=== PATIENT | male | born 1970 | race Caucasian/White ===

== ENCOUNTER 2022-08-25 16:57 | Emergency (ER) | payer MEDICAID, SELFPAY ==
[2022-08-25 16:57] VITALS: BP 163/92; PULSE 66; RESP 18; TEMP 36.7; O2SAT 99; BMI 32.1
[2022-08-25 17:10] VITALS: BMI 32.1
--- NOTE | 2022-08-25 17:10 | CT_ITS ---
PROCEDURE INFORMATION: Exam: CT Head Without Contrast Exam date and time: 08/25/2022 5:14 PM Age: 52 years old Clinical indication: Injury or trauma; Other: Tree limb hit in head; Blunt trauma (contusions or hematomas); Without loss of consciousness; Injury date: 08/25/22; Additional info: Tree limb hit in head-- laceration on right side of head TECHNIQUE: Imaging protocol: Computed tomography of the head without contrast. Radiation optimization: All CT scans at this facility use at least one of these dose optimization techniques: automated exposure control; mA and/or kV adjustment per patient size (includes targeted exams where dose is matched to clinical indication); or iterative reconstruction. COMPARISON: No relevant prior studies available. FINDINGS: Brain: The burr-white differentiation is preserved demonstrating no acute territorial type infarct. No acute intracranial hemorrhage is visualized. No intracranial mass effect. Artifact limits evaluation of the kindra. Intracranial atherosclerosis visualized. Cerebral ventricles: Mild ventriculomegaly, with asymmetry of the lateral ventricles. Mild sulcal atrophy. Pituitary gland and sella: Partially empty sella. Paranasal sinuses: Minimal mucosal thickening of the right maxillary sinus. Mastoid air cells: No mastoid effusion. Bones/joints: The calvarium demonstrates no evidence for a depressed fracture. Soft tissues: Unremarkable. IMPRESSION: 1. No acute intracranial abnormality. 2. Mild ventriculomegaly, with asymmetry of the lateral ventricles. Mild sulcal atrophy. 3. Additional findings described above.
--- NOTE | 2022-08-25 17:10 | CT_ITS ---
PROCEDURE INFORMATION: Exam: CT Cervical Spine Without Contrast Exam date and time: 08/25/2022 5:17 PM Age: 52 years old Clinical indication: Injury or trauma; Other: Tree limb hit in head; Blunt trauma; Injury date: 08/25/22; Additional info: Tree limb hit in head- laceration on the right side of head TECHNIQUE: Imaging protocol: Computed tomography of the cervical spine without contrast. Radiation optimization: All CT scans at this facility use at least one of these dose optimization techniques: automated exposure control; mA and/or kV adjustment per patient size (includes targeted exams where dose is matched to clinical indication); or iterative reconstruction. COMPARISON: CT HEAD/BRAIN WO CON 08/25/2022 5:14 PM FINDINGS: Bones/joints: No acute cervical spine fracture. The facet alignment is preserved bilaterally. Slight rotation of C1 on C2. No subluxation of the remaining cervical levels. The cervical lordosis is straightened. Hypertrophic arthropathy is identified at the junction of the anterior C1 arch and dens process. Facet arthropathy is identified at multiple cervical levels. Discs/Spinal canal/Neural foramina: Degenerative changes are visualized at multiple cervical levels. An anterior bridging osteophyte is identified at C5-C6. Mild spinal canal stenosis at C5-C6. Artifact limits evaluation of the spinal canal. Additional degenerative changes are identified at T2-3. Pharynx: Poor aeration of the bilateral pyriform sinuses. Lungs: No pneumothorax, as visualized. Lymph nodes: An enlarged right paratracheal lymph node is identified measuring 1.5 x 1.0 cm, nonspecific as to etiology. Scattered nonspecific cervical lymph nodes. Soft tissues: No significant prevertebral soft tissue swelling. IMPRESSION: 1. No acute cervical spine fracture. 2. Slight rotation of C1 on C2. 3. The cervical lordosis is straightened. 4. Degenerative changes are visualized at multiple cervical levels. 5. Additional findings described above.
--- NOTE | 2022-08-25 17:13 | PC.NURSE ---
pt to ct
[2022-08-25 18:01] VITALS: BP 150/90; PULSE 71; RESP 20; O2SAT 95
--- NOTE | 2022-08-25 18:23 | HMH.EDGENADL ---
Discharge Plan Disposition Patient Disposition: Home, Self-Care Condition: Good Prescriptions Prescriptions: New sulfamethoxazole-trimethoprim [Bactrim DS] 800-160 mg tablet 1 tab PO DAILY 5 Days Qty: 5 0RF No Action cyclobenzaprine 10 MG tablet 10 mg PO TID PRN (Reason: Muscle Spasm) Qty: 15 0RF etodolac 200 MG capsule 200 mg PO Q6HP PRN (Reason: Moderate Pain) Qty: 20 0RF cephalexin [Keflex] 500 MG capsule 500 mg PO QID Qty: 28 0RF Referrals Follow up/Referrals: Provider,Referral, MD [Primary Care Provider] - See instructions Clinical Impressions Clinical Impression: Laceration of scalp, Blunt head trauma Instructions Patient Instructions: DI for Laceration Repair -- Lex, Closed Head Injury Discharge ED Provider: Herber Garcia General Adult HPI General Chief complaint: Head Injury Stated complaint: ao 08/25 head laceration Time Seen by Provider: 08/25/22 17:05 Mode of Arrival: Ambulatory Source of Information: Patient Limitations: No Limitations Description of Symptoms (Recalled from ER Triage Doc. by RN): Pt reports was struck in the head by a tree limb, pt estimates tree limb was 3-4 cm in diameter. Pt was struck on the R side of his head. Pt denies LOC, states he was dizzy was getting struck. approx 1.5-2 in lac to R temporal area, bleeding controlled upon arrival to ED, pt was applying pressure to area upon arrival. History of Present Illness HPI narrative: 52yo M presents the emergency department after a limb fell of a tree and struck him on the right side of the head. Denies LOC but states he was dizzy after being struck. Patient noted some bleeding from the side of his head and reported to the emergency department. Uncertain last tetanus shot. Patient denies chronic medical problems. Denies known allergies. Related Data Previous Rx's Medication Instructions Recorded cephalexin 500 mg capsule (Keflex) 500 mg PO QID #28 caps 10/29/18 cyclobenzaprine 10 mg tablet 10 mg PO TID PRN Muscle Spasm #15 02/20/19 tabs etodolac 200 mg capsule 200 mg PO Q6HP PRN Moderate Pain 02/20/19 #20 caps sulfamethoxazole 800 1 tab PO DAILY 5 days #5 tabs 08/25/22 mg-trimethoprim 160 mg tablet (Bactrim DS) Allergies Allergy/AdvReac Type Severity Reaction Status Date / Time No Known Allergies Allergy Unverified 08/04/17 14:24 [facility] Disclaimer: The information contained in this section may have been updated after the patient was seen, as this information can be updated by other users. Social History Smoking Status: Never smoker second hand exposure: No alcohol intake: never current occupational status: employed Travel in the last 8 weeks: None household members: spouse housing: house ROS Obtained: Yes Systems reviewed as appropriate & no additional complaints except as documented Physical Exam General General appearance: alert and in no apparent distress Head Head exam: other (3 cm flap laceration right temporal. Bleeding controlled) Eye Eye exam: Present normal appearance, PERRL and EOMI ENT ENT exam: Present normal exam Neck Neck exam: Present normal inspection and trachea midline; Absent tenderness Chest Chest inspection: Present symmetric chest wall rise Respiratory Respiratory exam: Present normal lung sounds bilaterally; Absent respiratory distress or wheezes Cardiovascular Cardiovascular exam: Present regular rate, normal rhythm and normal heart sounds Abdominal Exam Abdominal exam: Present soft; Absent distention or tenderness Extremities Exam Extremities exam: Present normal inspection, full ROM and normal capillary refill Back Exam Back exam: Absent tenderness Neurological Exam Neurological exam: Present alert, oriented X3, CN II-XII intact and normal gait Psychiatric Psychiatric exam: Present normal affect and normal mood Skin Skin exam: Present warm, dry and other (Laceration a
[2022-08-25 18:59] VITALS: BP 155/99; PULSE 65; RESP 18; TEMP 36.7; O2SAT 97
== END 2022-08-25 18:59 | disposition home or self-care (01) ==
PROVIDERS: Emergency Provider Family Medicine
DX: S09.8XXA Other specified injuries of head, initial encounter (principal); S01.01XA Laceration without foreign body of scalp, initial encounter; W22.8XXA Striking against or struck by other objects, initial encounter; Z23 Encounter for immunization
CPT/HCPCS: 12002; 70450; 72125; 90471; 90715; 96372; 99285

== ENCOUNTER 2022-10-23 15:27 | Emergency (ER) | payer MEDICAID, SELFPAY ==
[2022-10-23 15:41] VITALS: BP 164/92; PULSE 79; RESP 18; TEMP 36.9; O2SAT 96; BMI 32.8
--- NOTE | 2022-10-23 15:43 | EXP.UTC ---
Discharge Plan Disposition Patient Disposition: Home, Self-Care Condition: Good Prescriptions Prescriptions: New azithromycin [Zithromax] 250 mg tablet 250 mg PO UD DOSE PK Qty: 6 0RF Rx Instructions: Take two (2) tablets today, then one (1) tablet days #2 thru #5 benzonatate [benzonatate] 100 mg capsule 100 mg PO TIDP PRN (Reason: Cough) Qty: 30 0RF prednisone 10 mg tablet 10 mg PO DIRECTED 9 Days Qty: 21 0RF Rx Instructions: Take 4 tablets daily for 3 days, then take 2 tablets daily for 3 days, then take 1 tablet daily for 3 days, then stop. Referrals Follow up/Referrals: Provider,Referral, MD [Primary Care Provider] - See instructions Activity Restrictions/Add. Instructions Additional Instructions/Restrictions: Drink plenty of fluids. Take tylenol or ibuprofen for pain or fever. Take the medications as directed. Follow up with your regular doctor. GO TO THE ER FOR ANY WORSENING SYMPTOMS Don't start the oral steroids until tomorrow, since you had the shot here today. Clinical Impressions Clinical Impression: Acute bronchitis, Sinusitis Instructions Patient Instructions: DI for Sinusitis, DI for Acute Bronchitis Discharge ED Provider: Jacobo Craven [facility] General Stated complaint: Sinus: sore throat drainage Time Seen by Provider: 10/23/22 15:40 History of Present Illness Provider Complaint: He states that for the past 5 days he has had chest and sinus congestion. It is progressively getting worse, so he came in to be checked. He denies shortness of breath unless he does something strenuous. Related Data Previous Rx's Medication Instructions Recorded azithromycin 250 mg tablet 250 mg PO UD DOSE PK #6 tabs 10/23/22 (Zithromax) benzonatate 100 mg capsule 100 mg PO TIDP PRN Cough #30 caps 10/23/22 prednisone 10 mg tablet 10 mg PO DIRECTED 9 days #21 10/23/22 tabs Allergies Allergy/AdvReac Type Severity Reaction Status Date / Time No Known Allergies Allergy Unverified 08/04/17 14:24 [facility] Disclaimer: The information contained in this section may have been updated after the patient was seen, as this information can be updated by other users. Social History Smoking Status: Never smoker second hand exposure: No alcohol intake: never current occupational status: employed Travel in the last 8 weeks: None household members: spouse housing: house ROS Obtained: Yes All systems reviewed & no additional complaints except as documented Constitutional Constitutional: Reports poor appetite Eyes Eyes: Reports system reviewed and no additional complaints, except as documented ENT Ears, Nose, Mouth, and Throat: Reports as per HPI Cardiovascular Cardiovascular: Reports system reviewed and no additional complaints, except as documented and Denies chest pain Respiratory Respiratory: Denies shortness of breath, Reports chest congestion, Reports cough, Denies stridor and Denies wheezing Gastrointestinal Gastrointestingal: Reports system reviewed and no additional complaints, except as documented; Denies abdominal pain, diarrhea or vomiting Musculoskeletal Musculoskeletal: Reports system reviewed and no additional complaints, except as documented and Denies arthralgias Integumentary/Breasts Skin/Breast: Reports system reviewed and no additional complaints, except as documented and Denies rash Neurologic Neurologic: Denies paresthesias Allergic/Immunologic Allergic/Immunologic: Denies wheezing Physical Exam General General appearance: alert and in no apparent distress Eye Eye exam: Present normal appearance, PERRL and EOMI ENT ENT exam: Present mucous membranes moist and normal external ear exam Expanded ENT Exam External ear exam: Present normal external inspection TM/Canal exam: Bilateral TM: erythema and bulging Nose exam: Absent sinus tenderness Nasal speculum exam: Bilate
[2022-10-23 16:12] VITALS: BP 164/92; PULSE 79; RESP 18; TEMP 36.9; O2SAT 96
== END 2022-10-23 16:18 | disposition home or self-care (01) ==
PROVIDERS: Emergency Provider Nurse Practitioner Family
DX: J20.9 Acute bronchitis, unspecified (principal); J01.90 Acute sinusitis, unspecified
CPT/HCPCS: 96372; 99212; 99214; G0463; J0696

== ENCOUNTER 2023-11-13 10:48 | Outpatient (CLI) | payer MEDICAID, SELFPAY ==
[2023-11-13 10:40] LABS: Basophils # 0.1 K/mm3 (0-0.2); Basophils % 1.6 % (0.1-2.0); Eosinophils # 0.3 K/mm3 (0.0-0.4); Eosinophils % 3.2 % (0.1-12.0); Hematocrit 42.5 % (42.0-52.0); Hemoglobin 14.3 g/dL (14.1-18.0); Lymphocytes # 2.1 K/mm3 (0.7-4.5); Lymphocytes % 25.2 % (10-50); Mean Corpuscular HGB Conc 33.7 g/dL (31.8-35.4); Mean Corpuscular Hemoglobin 30.8 pg (27.0-31.2); Mean Corpuscular Volume 91.5 fl (80-94); Mean Platelet Volume 9.5 fl (7.4-10.4); Monocytes # 0.7 K/mm3 (0.1-1.0); Monocytes % 8.5 % (1.7-9.3); Neutrophils # 5.1 K/mm3 (1.8-7.8); Neutrophils % 61.4 % (37.0-80.0); Platelet Count 243 K/mm3 (142-424); Red Blood Count 4.65 M/mm3 (4.60-6.20); Red Cell Distribution Width 13.9 % (11.5-17.5); White Blood Count 8.3 K/mm3 (4.8-10.8)
[2023-11-13 11:18] LABS: Hemoglobin A1C 5.7 % (4.0-6.0)
[2023-11-13 11:19] LABS: Alanine Aminotransferase 53 U/L (12-78); Albumin Level 4.3 g/dl (3.5-5.0); Albumin/Globulin Ratio 1.5 (1.1-1.8); Alkaline Phosphatase 86 U/L (38-126); Anion Gap 13.4 mEq/L (5-15); Aspartate Amino Transferase 40 U/L (17-59); Bilirubin,Total 0.4 mg/dl (0.2-1.3); Blood Urea Nitrogen 15 mg/dl (9-20); Calcium 9.1 mg/dl (8.4-10.2); Carbon Dioxide 24 mmol/L (22.0-30.0); Chloride 106 mmol/L (98-107); Chol/HDL Ratio 7.4 (1-3.5); Cholesterol 206 mg/dl (140-200); Estimated Glomerular Filt Rate 78 ml/min (>60); GFR (African American) 94 ML/MIN (>60); Globulin 2.9 g/dL (1.3-3.2); Glucose 102 mg/dl (74-100); HDL Cholesterol 28 mg/dl (40-60); Potassium 4.4 mmoL/L (3.5-5.1); Sodium 139 mmol/L (136-145); Total Protein,Serum 7.2 g/dl (6.3-8.2); Triglycerides 262 mg/dl (30-150); VLDL Cholesterol 52 mg/dL (0-40)
[2023-11-13 11:34] LABS: Free T4 (Free Thyroxine) 0.97 ng/dl (0.78-2.19)
[2023-11-13 11:49] LABS: Thyroid Stimulating Hormone 1.97 uIU/mL (0.465-4.68)
== END 2023-11-13 23:59 ==
LOC: LAB.DROPOF 10:49
PROVIDERS: PCP Internal Medicine; Visit Provider Internal Medicine
DX: Z00.00 Encounter for general adult medical examination without abnormal findings (principal); Z13.29 Encounter for screening for other suspected endocrine disorder; Z13.220 Encounter for screening for lipoid disorders; Z13.1 Encounter for screening for diabetes mellitus; E66.9 Obesity, unspecified; Z68.34 Body mass index [BMI] 34.0-34.9, adult; Z79.899 Other long term (current) drug therapy
CPT/HCPCS: 80053; 80061; 83036; 84439; 84443; 85025

== ENCOUNTER 2024-04-06 14:03 | Emergency (ER) | payer MEDICAID, SELFPAY ==
[2024-04-06 14:15] VITALS: BP 144/83; PULSE 75; RESP 18; TEMP 36.6; O2SAT 99; BMI 33.5
--- NOTE | 2024-04-06 14:31 | ED_ITS ---
Discharge Plan Disposition Patient Disposition: Home, Self-Care Condition: Good Prescriptions Prescriptions: New amoxicillin-pot clavulanate 875-125 mg Tablet 1 tab PO Q12H Qty: 20 0RF methylprednisolone [Medrol (Crispin)] 4 mg tablets,dose pack See Rx Instructions .Route .COMPLEX 6 Days Qty: 21 0RF Rx Instructions: taper pack; [id number]-demguhfgx-RU [Bromfed DM] 2-30-10 mg/5 mL syrup 10 ml PO Q6H PRN (Reason: cold symptoms) Qty: 200 0RF No Action losartan 50 mg tablet 50 mg PO DAILY Qty: 30 0RF Referrals Follow up/Referrals: Baljinder Benitez DO [Primary Care Provider] - See instructions Activity Restrictions/Add. Instructions Additional Instructions/Restrictions: *Monitor Temp, Over the counter Motrin or Tylenol as directed/as needed Tylenol every 4 hours and Motrin every 6 hours (as long as your family doctor has told you that you can take it) for fever or pain. and straight to ER if unable to lower temp less than 101.0 after medication given *Warm salt water gargles may help to soothe the throat *Throat Lozenges? *Warm fluids like tea with honey may help to soothe the throat? *Sleep elevated *Humidifier/Vaporizer *Flonase 2 sprays in each nostril daily but be aware that it may take 2-3 days before you notice improvement *Bromfed may cause drowsiness. Know how it effects you (your child) before driving, caring for small child, or sending your child to school. Not other antihistamines/allergy medications while taking bromfed Take medication as prescribed Follow up IMMEDIATELY for new or worsening symptoms or no Noticeable improvement over the next 48-72 hours. 911 for difficulty breathing or swallowing Clinical Impressions Clinical Impression: Sinusitis Instructions Patient Instructions: DI for Sinusitis, Sinusitis Print Language Print Language: [place]an Discharge ED Provider: Kathy Levy [facility] [place] General Stated complaint: cough, sinus pressure Mode of Arrival: Ambulatory Source of Information: Patient Limitations: No Limitations Time Seen by Provider: 04/06/24 14:31 Description of Symptoms (Recalled from Triage Doc. by RN): PATIENT C/O SINUS CONGESTION AND COUGH WITH PHLEGM THAT STARTED YESTERDAY. HE ALSO STATES HE HAD RIGHT EAR PAIN YESTERDAY, BUT AFTER IT POPPED THE PAIN WENT AWAY HEENT Symptoms (Recalled from RN notes): Yes Resp Symptoms (Recalled from RN notes): Yes Skin Symptoms (Recalled from RN notes): No MS Symptoms (Recalled from RN notes): No Functional Status (Recalled from RN notes): WNL History of Present Illness Provider Complaint: Patient states that he has been having some sinus congestion and pressure for several days worse since yesterday States that he is having sinus pressure and pressure behind his eyes States feels like it is draining in the back of his throat and having pain and pressure in his right ear and 'popping and this morning he was coughing up some phlegm so he came in to get checked Related Data Previous Rx's ?Medication ?Instructions ?Recorded losartan 50 mg tablet 50 mg PO DAILY #30 tabs 03/16/24 amoxicillin 875 mg-potassium 1 tab PO Q12H #20 tabs 04/06/24 clavulanate 125 mg tablet obmmgbdlucvncne-fsibypihygxxdbk-AA 10 ml PO Q6H PRN cold symptoms 04/06/24 2 mg-30 mg-10 mg/5 mL oral syrup #200 mL (Bromfed DM) methylprednisolone 4 mg tablets in See Rx Instructions .Route 04/06/24 a dose pack (Medrol (Crispin)) .COMPLEX 6 days #21 tabs Allergies Allergy/AdvReac Type Severity Reaction Status Date / Time No Known Allergies Allergy Verified 01/20/24 15:14 Worker's Comp Is this a Worker's Comp case?: No [facility] Disclaimer: The information contained in this section may have been updated after the patient was seen, as this information can be updated by other users. Medical History Blunt head trauma Surgical History No pertinent past surgical history Family History Family/Other No significant family history Social History Smoking Status: Never smoker second hand exposure: No alcohol intake: never current occupational status: employed Travel in the last 8 weeks: None household members: spouse housing: house ROS Obtained: Yes All systems reviewed & no additional complaints except as documented and Yes Systems reviewed as appropriate & no additional complaints except as documented Constitutional Constitutional: Reports system reviewed and no additional complaints, except as documented, Reports as per HPI and Reports headache(s) ENT Ears, Nose, Mouth, and Throat: Reports system reviewed and no additional complaints, except as documented, Reports as per HPI, Reports otalgia, Reports headache(s), Reports sinus pain and Reports sinus pressure Cardiovascular Cardiovascular: Reports system reviewed and no additional complaints, except as documented and Reports as per HPI Respiratory Respiratory: Reports system reviewed and no additional complaints, except as documented, Reports as per HPI, Reports chest congestion and Reports cough Gastrointestinal Gastrointestingal: Reports system reviewed and no additional complaints, except as documented and as per HPI Neurologic Neurologic: Reports headache(s) Physical Exam General General appearance: alert and in no apparent distress ENT ENT exam: Present mucous membranes moist Expanded ENT Exam TM/Canal exam: Right TM: erythema and bulging Nose exam: Present sinus tenderness Throat exam: Present other (PND noted) Chest Chest inspection: Present normal inspection and symmetric chest wall rise Respiratory Respiratory exam: Present normal lung sounds bilaterally; Absent respiratory distress or wheezes Cardiovascular Cardiovascular exam: Present regular rate, normal rhythm and normal heart sounds Neurological Exam Neurological exam: Present alert, oriented X3 and normal gait Medical Decision Making [place] Inquiry Pt receiving controlled substance: No [place] was queried for this patient: No Vital Signs: 04/06/24 14:15 Temperature 97.9 F Temperature Source Oral Pulse Rate [Left Brachial] 75 Respiratory Rate 18 Blood Pressure [Left Arm] 144/83 H Blood Pressure Mean [Left Arm] 103 Blood Pressure Source [Left Arm] Automatic Cuff Blood Pressure Position [Left Arm] Sitting 02 Sat by Pulse Oximetry 99 Oxygen Delivery Method Room Air
[2024-04-06 14:49] VITALS: BP 144/83; PULSE 75; RESP 18; TEMP 36.6; O2SAT 99
== END 2024-04-06 14:52 | disposition home or self-care (01) ==
PROVIDERS: Emergency Provider Nurse Practitioner; PCP Internal Medicine
DX: J01.90 Acute sinusitis, unspecified (principal); R05.9 Cough, unspecified; R51.9 Headache, unspecified; R09.82 Postnasal drip; R09.81 Nasal congestion
CPT/HCPCS: 99212; 99214; G0463

== ENCOUNTER 2025-03-14 10:18 | Outpatient (CLI) | payer MEDICAID, SELFPAY ==
[2025-03-14 18:35] LABS: Cholesterol 189 mg/dl (140-200); HDL Cholesterol 32 mg/dl (40-60); Triglycerides 212 mg/dl (30-150)
[2025-03-14 19:40] LABS: Hemoglobin A1C 5.3 % (4.0-6.0)
== END 2025-03-14 23:59 | disposition home or self-care (01) ==
LOC: LAB.DROPOF 03-15 12:30
PROVIDERS: PCP Internal Medicine; Visit Provider Internal Medicine
DX: R73.03 Prediabetes (principal); E66.01 Morbid (severe) obesity due to excess calories
CPT/HCPCS: 80061; 83036